=== PATIENT | female | born 1995 | race Caucasian/White ===

== ENCOUNTER 2018-09-21 19:04 | Emergency (ER) | payer OTHER ==
--- NOTE | 2018-09-21 19:11 | ER Report ---
History and Physical Time Seen By MD: 19:10 HPI/ROS CHIEF COMPLAINT: Fever, cough HISTORY OF PRESENT ILLNESS: This is a 23-year-old female. She has been having severe symptoms of cough, congestion, sore throat, fever. She has diffuse aches and pains with mild headache as well. Mild nausea but no vomiting. Normal bowel and bladder function. Started morning. Allergies: Coded Allergies: codeine (Verified Allergy, Unknown, 09/21/18) Home Meds Active Scripts Benzonatate 100 Mg Cap (TESSALON PERLE 100 MG CAP) 100 Mg Capsule, 100 MG PO TID PRN for COUGH, #15 CAP 0 Refills Prov:RAEGAN BOURGEOIS MD 09/21/18 Oseltamivir Phosphate (TAMIFLU) 75 Mg Cap, 75 MG PO BID, #10 CAP 0 Refills Prov:RAEGAN BOURGEOIS MD 09/21/18 Reported Medications [curide] No Conflict Check, 1 TAB PO QDAY 09/21/18 Reviewed Nurses Notes: Yes Constitutional Vital Sign - Last 24 Hours 09/21/18 09/21/18 09/21/18 09/21/18 19:15 19:17 19:30 19:45 Temp 100.9 Pulse 128 120 122 Resp 18 B/P (MAP) 138/88 130/75 (93) Pulse Ox 93 94 81 O2 Delivery Room Air 09/21/18 09/21/18 20:00 20:15 Pulse 115 B/P (MAP) 113/78 (90) Pulse Ox 91 Physical Exam General Appearance: Alert, no acute distress.[ ] Eyes: Pupils equal, round, reactive. Slight scleral injection bilaterally. ENT: Moist mucous membranes, normal oral mucosa. Posterior oropharynx with erythema and postnasal drainage. Nasal mucosa with erythema and mucus. Tympanic membranes and canals are normal bilaterally. Neck: Neck is supple, nontender, has anterior cervical lymphadenopathy. Respiratory: Chest is non tender, lungs are clear to auscultation. Cardiac: regular rate and rhythm. Gastrointestinal: Abdomen is soft and non tender, bowel sounds normal. Musculoskeletal: Extremities have full range of motion. Skin: No rashes or lesions. DIFFERENTIAL DIAGNOSIS: After history and physical exam differential diagnosis was considered for multiple symptoms likely influenza or other viral syndrome. Medical Decision Making Data Points Laboratory Hematology Test 09/21/18 19:10 Influenza Virus Type A (PCR) Positive (NEGATIVE) Influenza Virus Type B (PCR) Negative (NEGATIVE) Chemistry Test 09/21/18 19:10 Influenza Virus Type A (PCR) Positive (NEGATIVE) Influenza Virus Type B (PCR) Negative (NEGATIVE) ED Course/Re-evaluation ED Course Positive influenza A. Discussed symptomatic relief. We'll go ahead and try some benzonatate. We'll start her on Tamiflu. Tylenol and ibuprofen for symptomatic relief. Decision to Disposition Date: Sep 21, 2018 Decision to Disposition Time: 20:25 Depart Departure Latest Vital Signs Vital Signs Date Time Temp Pulse Resp B/P (MAP) Pulse Ox O2 Delivery O2 Flow Rate FiO2 09/21/18 20:15 115 91 09/21/18 20:00 113/78 (90) 09/21/18 19:17 100.9 18 Room Air Impression: Primary Impression: Influenza A Condition: Improved Disposition: HOME OR SELF-CARE New Scripts Benzonatate 100 Mg Cap (TESSALON PERLE 100 MG CAP) 100 Mg Capsule 100 MG PO TID PRN for COUGH, #15 CAP 0 Refills Prov: RAEGAN BOURGEOIS MD 09/21/18 Oseltamivir Phosphate (TAMIFLU) 75 Mg Cap 75 MG PO BID, #10 CAP 0 Refills Prov: RAEGAN BOURGEOIS MD 09/21/18 Patient Instructions: Influenza (ED) Additional Instructions: Rest and increase fluid intake. Tamiflu 75mg twice a day for 5 days. Ibuprofen and/or Tylenol as needed for pain and for fevers. Consider use of Benzonatate capsules (Tessalon Perles), one ever 8 hours as needed for severe cough. RAEGAN BOURGEOIS MD Sep 21, 2018 19:10
[2018-09-21] MEDS ORDERED: [UNRECOGNIZED DRUG - OTHER] PO (19:17)
[2018-09-21 20:00] VITALS: BP 113/78
[2018-09-21] MEDS ORDERED: BENZ100C4 PO (20:27)
[2018-09-21] MEDS ORDERED: OSE75 PO (20:27)
[2018-09-21] MEDS ORDERED: BENZONATATE 100 MG CAP PO ONE (20:30)
[2018-09-21] MEDS ORDERED: OSELTAMIVIR PHOS 75 MG CAP PO ONE (20:30)
== END 2018-09-21 20:35 | disposition home or self-care (01) ==
LOC: ER 19:17
DX: J09.X2 Influenza due to identified novel influenza A virus with other respiratory manifestations (principal)
CPT/HCPCS: 87502; 99283